=== PATIENT | female | born 1970 | race Caucasian/White ===

== ENCOUNTER 2024-06-19 10:00 | Outpatient (AMB) | payer OTHER, MEDICARE, SELFPAY ==
[2024-06-19 10:38] VITALS: BP 138/86; PULSE 100; RESP 18; TEMP 35.5; O2SAT 95; BMI 31.4
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
== END 2024-06-19 10:56 | disposition home or self-care (01) ==
LOC: HODSRG 10:00
PROVIDERS: PCP Family Medicine; Referring Provider Family Medicine; Supervising Provider Orthopaedic Surgery Adult Reconstructive Orthopaedic Surgery; Visit Provider Orthopaedic Surgery Adult Reconstructive Orthopaedic Surgery
DX: M17.11 Unilateral primary osteoarthritis, right knee (principal); M25.562 Pain in left knee; M25.561 Pain in right knee; E78.00 Pure hypercholesterolemia, unspecified; J44.9 Chronic obstructive pulmonary disease, unspecified
CPT/HCPCS: 20610; 99213; J3301; J3490; G0463

== ENCOUNTER 2024-08-08 15:03 | Outpatient (RCR) | payer MEDICARE, SELFPAY ==
--- NOTE | 2024-08-08 15:41 | PT.OIERPT ---
PT OP Initial Eval Patient Information Outpatient Physical Therapy Treatment Date: 08/08/24 Visit Reasons: KNEE PAIN Medical Diagnosis: M17.0 Treatment Dx #1: Bilateral Knee Pain Start of Care: 08/08/24 Date of Onset: <del>2014</del> Smoking Status Smoking Status: Current every day smoker (yes) Cessation Counseling Provided: NANCY was advised that quitting smoking is the single most important factor to protect the health of themselves and their family. Discussed the benefits of quitting smoking with patient. Encouraged patient to quit smoking and provided Cessation assistance materials and resources. Tobacco Use: Cigarette Years smoked: 20 Are you interested in quitting?: No Would you like additional Smoking Cessation Counseling?: No Initial Assessment Subjective: Pt is a 53 y/o female reports of chronic knee pain (08/11) since 2014. Pt's most xray showed moderate knee OA. Pt seen Dr Finney and does not recommend surgery at this time. Pt currently does not have much functional limitation. Pt has been walking daily 1.5 miles. Pt does not feel that she needs physical therapy at the moment. Objective: Bilateral Knee AROM: all motions are WNL Bilateral Knee MMTs: grossly 4/5 Bilateral Hip MMTs: grossly 4-/5 Assessment: Pt demonstrate functional knee mobility and strength with minimal irritability during ADLs. At this time Pt will not benefit from physical therapy and d/c from care; thank you for your referrals. Short Term and Senior Care Goals 1) Eval and D/C 2) Follow up with surgeon as needed Procedure Charges OP PT Eval Mod Complex 30 minutes: Yes
== END 2024-08-29 23:59 | disposition home or self-care (01) ==
LOC: CPTX 15:03
PROVIDERS: PCP Family Medicine; Referring Provider Orthopaedic Surgery Adult Reconstructive Orthopaedic Surgery; Visit Provider Orthopaedic Surgery Adult Reconstructive Orthopaedic Surgery
DX: M25.562 Pain in left knee (principal); M25.561 Pain in right knee; M17.0 Bilateral primary osteoarthritis of knee; G89.29 Other chronic pain; Z71.6 Tobacco abuse counseling; F17.210 Nicotine dependence, cigarettes, uncomplicated
CPT/HCPCS: 97162

== ENCOUNTER → 2024-09-29 | Outpatient (CLI) | payer MEDICARE, SELFPAY ==
--- NOTE | 2024-09-29 08:45 | XR_ITS ---
Examination: Breast ultrasound, unilateral, left complete Date and time of exam: September 29, 2024 0901 hours INDICATIONS: Left breast pain several years worse the last month, retroareolar nodule 6 x 7 mm on left breast sonogram September 04, 2023 Technique: Real-time davidson scale ultrasonographic imaging performed left breast including all 4 quadrants as well as nipple retroareolar and axillary region. Findings: Retroareolar nodule circumscribed 6 x 8 mm IMPRESSION: BI-RADS Category 2: Benign findings
--- NOTE | 2024-09-29 09:15 | XR_ITS ---
Examination: Diagnostic digital mammography, bilateral Computer aided detection 3-D breast Tomosynthesis, bilateral Date and time of exam: September 29, 2024 at 0919 hours Comparison August 01, 2023 INDICATIONS: Left breast pain several years worse the last month Technique: Nonmagnified MLO, CC views of the breasts to been obtained, reconstructed from 3-D Tomosynthesis images. R2 computer aided detection program utilized for evaluation of suspicious masses and/or abnormal calcifications. 3-D Tomosynthesis images obtained. Findings: Scattered areas of fibroglandular density. Scar formation adjacent to breast biopsy marker 12:00 position left breast No interval suspicious masses Impression: BI-RADS Category 2: Benign findings Recommend yearly follow-up mammography Repeat the left mammogram in 6 months if the patient's left breast pain persists.
== END | disposition home or self-care (01) ==
LOC: CDIM 08:32
PROVIDERS: Referring Provider Physician Assistant Medical; Visit Provider Physician Assistant Medical
DX: R92.323 Mammographic fibroglandular density, bilateral breasts (principal)
CPT/HCPCS: 76641; 77062; 77066; G0279

== ENCOUNTER 2024-11-18 15:02 | Outpatient (AMB) | payer MEDICARE, SELFPAY ==
[2024-11-18 15:13] VITALS: BP 128/85; PULSE 102; RESP 18; TEMP 36.9; O2SAT 96; BMI 30.4
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
== END 2024-11-18 15:48 | disposition home or self-care (01) ==
LOC: HODSRG 15:02
PROVIDERS: Supervising Provider Orthopaedic Surgery Adult Reconstructive Orthopaedic Surgery; Visit Provider Orthopaedic Surgery Adult Reconstructive Orthopaedic Surgery
DX: M17.11 Unilateral primary osteoarthritis, right knee (principal); M25.562 Pain in left knee; M25.561 Pain in right knee; E78.00 Pure hypercholesterolemia, unspecified; J44.9 Chronic obstructive pulmonary disease, unspecified
CPT/HCPCS: 20610; 99213; J3301; J3490; G0463

== ENCOUNTER 2025-02-24 10:52 | Outpatient (AMB) | payer MEDICARE, SELFPAY ==
[2025-02-24 11:31] VITALS: BP 117/82; PULSE 88; RESP 18; TEMP 36.1; O2SAT 96; BMI 30.2
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
== END 2025-02-24 11:53 | disposition home or self-care (01) ==
LOC: HODSRG 10:52
PROVIDERS: Supervising Provider Orthopaedic Surgery Adult Reconstructive Orthopaedic Surgery; Visit Provider Orthopaedic Surgery Adult Reconstructive Orthopaedic Surgery
DX: M17.11 Unilateral primary osteoarthritis, right knee (principal); M25.562 Pain in left knee; M25.561 Pain in right knee; E78.00 Pure hypercholesterolemia, unspecified; J44.9 Chronic obstructive pulmonary disease, unspecified; M79.7 Fibromyalgia
CPT/HCPCS: 20610; 99213; J1010; J2795; G0463

== ENCOUNTER → 2025-04-13 | Outpatient (CLI) | payer MEDICARE, SELFPAY ==
--- NOTE | 2025-04-13 09:11 | XR_ITS ---
EXAMINATION: PA lateral chest 2 views TECHNIQUE: Upright PA lateral chest 2 views Date and time: April 13, 2025, 0930 hours, comparison August 21, 2017 INDICATIONS: Coughing several years, smoking history FINDINGS: Normal heart size The lungs are clear. The osseous structures are intact Prominent osteopenia IMPRESSION: No active disease
== END | disposition home or self-care (01) ==
LOC: CDIM 09:04
PROVIDERS: PCP Nurse Practitioner Family; Referring Provider Nurse Practitioner Family; Visit Provider Nurse Practitioner Family
DX: R05.9 Cough, unspecified (principal); Z87.891 Personal history of nicotine dependence
CPT/HCPCS: 71046

== ENCOUNTER 2025-06-11 09:58 | Outpatient (AMB) | payer MEDICARE, SELFPAY ==
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
[2025-06-11 10:47] VITALS: BP 153/103; PULSE 93; RESP 18; TEMP 36; O2SAT 95; BMI 29.5
== END 2025-06-11 11:19 | disposition home or self-care (01) ==
LOC: HODSRG 09:58
PROVIDERS: PCP Nurse Practitioner Family; Referring Provider Nurse Practitioner Family; Supervising Provider Orthopaedic Surgery Adult Reconstructive Orthopaedic Surgery; Visit Provider Orthopaedic Surgery Adult Reconstructive Orthopaedic Surgery
DX: M17.0 Bilateral primary osteoarthritis of knee (principal); M25.562 Pain in left knee; M25.561 Pain in right knee
CPT/HCPCS: 20610; 99213; J1010; J2795; G0463

== ENCOUNTER → 2025-06-17 | Outpatient (CLI) | payer MEDICARE, SELFPAY ==
--- NOTE | 2025-06-17 14:00 | XR_ITS ---
Examination: Breast ultrasound, unilateral, left complete Date and time of exam: June 17, 2025, 1427 hours INDICATIONS: Patient states left breast pain and palpable lump beginning 2 weeks ago, family history of breast cancer, left breast sonogram September 29, 2024 retroareolar nodule 6 x 8 mm Technique: Real-time davidson scale ultrasonographic imaging performed left breast including all 4 quadrants as well as nipple retroareolar and axillary region. Findings: Retroareolar circumscribed nodule 7 x 6 mm IMPRESSION: BI-RADS Category 2: Benign finding
--- NOTE | 2025-06-17 14:30 | XR_ITS ---
Examination: Diagnostic digital mammography, unilateral, left Computer aided detection 3-D breast Tomosynthesis, unilateral Date and time of exam: June 17, 2025, 1440 hours INDICATIONS: History left breast biopsy, scar formation 12 o'clock position left breast with breast biopsy marker Technique: Nonmagnified MLO, CC views of the left breast have been obtained, reconstructed from 3-D Tomosynthesis images. R2 computer aided detection program utilized for evaluation of suspicious masses and/or abnormal calcifications. 3-D Tomosynthesis images obtained. Findings: Scattered areas of fibroglandular density. Stable scar formation left breast Stable position breast biopsy marker 12 o'clock position Impression: BI-RADS category 2: Benign findings Recommend yearly follow-up mammography
== END | disposition home or self-care (01) ==
PROVIDERS: PCP Nurse Practitioner Family; Referring Provider Specialist; Visit Provider Specialist
DX: R92.322 Mammographic fibroglandular density, left breast (principal); Z80.3 Family history of malignant neoplasm of breast
CPT/HCPCS: 76641; 77061; 77065; G0279